=== PATIENT | female | born 1945 ===

== ENCOUNTER 2019-11-03 11:54 | Emergency (ER) | payer OTHER ==
[2019-11-03] MEDS ORDERED: Sodium Chloride 0.9% 10 ML Syringe FLUSH PRN (12:06)
[2019-11-03] MEDS ORDERED: Sodium Chloride 0.9% 1,000 ML IV ONE (12:16)
--- NOTE | 2019-11-03 12:25 | EDM.PDOC ---
ED HPI GENERAL MEDICAL PROBLEM - General Chief Complaint: General Stated Complaint: DEHYDRATION Time Seen by Provider: 11/03/19 12:06 Source of Information: Reports: Patient History Limitations: Reports: No Limitations - History of Present Illness INITIAL COMMENTS - FREE TEXT/NARRATIVE: Patient comes to ER requesting IV hydration and says she is dehydrated. Reports she is eating/drinking and urinating well, but feels fatigue. Visiting [place]. Is from [place]. Reports history of renal cancer and says her oncologist told her that the medicine she is taking will cause periodic dehydration and told her that she might need IV fluids "every 3-4 months". Patient reports that she has needed IV fluids 3-4 times a year for this, for the past 4 years. Says every time she gets the fluid the fatigue goes away and she feels well. She denies any other changes. No recent illnesses. No fevers/chills No HEENT changes/runny nose/ST/vision changes/vertigo No Resp changes/cough/wheeze/SOB. Has history of "lung problem" for which she has a ProAir inhaler. Denies being diagnosed with COPD. No chest pain/palpitations Denies nausea/emesis/bowel changes. No UTI complaints/frequency/burning. No new focal neuro changes. - Related Data Allergies Allergy/AdvReac Type Severity Reaction Status Date / Time aspirin Allergy Shaking Verified 11/03/19 11:59 diphenhydramine Allergy Shaking Verified 11/03/19 11:59 [From Benadryl] Penicillins Allergy Shaking Verified 11/03/19 11:59 Home Meds: Home Meds Albuterol Sulfate [Proair Hfa] 8.5 gm IH Q4HR PRN 11/03/19 [History] Calcium Carbonate/Vitamin D3 [Calcium 600-D3 20Mcg(800 Unit)] 1 each PO BID [History] Cholecalciferol (Vitamin D3) [Vitamin D3] 25 mcg PO DAILY@1800 11/03/19 [History ] Cranberry Extract/Vit C [Azo Cranberry Softgel] 1 each PO DAILY 11/03/19 [ History] Cyanocobalamin (Vitamin B-12) [Vitamin B-12] 5,000 mcg PO DAILY@1800 11/03/19 [ History] Everolimus [Afinitor] 7.5 mg PO DAILY@2100 11/03/19 [History] Ferrous Sulfate [Iron] 325 mg PO DAILY@1800 11/03/19 [History] Hydrocodone/Acetaminophen [Hydrocodon-Acetaminophen 5-325] 1 each PO Q6HR PRN [History] Lenvatinib Mesylate [Lenvima] 4 mg PO DAILY@2100 11/03/19 [History] Levothyroxine [Synthroid] 88 mcg PO ACBREAKFAST 11/03/19 [History] Pantoprazole [ProTONIX] 40 mg PO DAILY 11/03/19 [History] Sodium Bicarbonate 650 mg PO BID 11/03/19 [History] Vitamin E 400 unit PO DAILY@1800 11/03/19 [History] atorvaSTATin [Lipitor] 40 mg PO BEDTIME 11/03/19 [History] Past Medical History Cardiovascular History: Reports: High Cholesterol Respiratory History: Reports: Asthma Gastrointestinal History: Reports: Chronic Constipation, GERD Endocrine/Metabolic History: Reports: Hypothyroidism Oncologic (Cancer) History: Reports: Renal Social & Family History - Tobacco Use Smoking Status *Q: Never Smoker - Caffeine Use Caffeine Use: Reports: Tea - Alcohol Use Alcohol Use History: No - Recreational Drug Use Recreational Drug Use: No Drug Use in Last 12 Months: No ED ROS GENERAL - Review of Systems Review Of Systems: Comprehensive ROS is negative, except as noted in HPI. ED EXAM, GENERAL - Physical Exam Exam: See Below Exam Limited By: No Limitations General Appearance: Alert, WD/WN, No Apparent Distress Ears: Hearing Grossly Normal Nose: No: Nasal Deformity, Nasal Swelling, Nasal Drainage Throat/Mouth: Normal Lips, No Airway Compromise, Perioral Cyanosis Head: Atraumatic, Normocephalic Neck: Normal Inspection, Supple, Non-Tender, Full Range of Motion Respiratory/Chest: No Respiratory Distress, Lungs Clear, Normal Breath Sounds, No Accessory Muscle Use, Chest Non-Tender Cardiovascular: Regular Rate, Rhythm, No Murmur Peripheral Pulses: 1+: Radial (L), Radial (R) GI/Abdominal: Soft, Non-Tender, No Distention (Female) Exam: Deferred Rectal (Female) Exam: Deferred Back Exam: No: Muscle Spasm, Paraspinal Tenderness, Vertebral Tenderness Extremities: Normal Capillary Refill, Pedal Edema (mild, bilateral) Neurological: Alert, Oriented, Normal Cognition, Normal Gait, No Motor/Sensory Deficits Psychiatric: Normal Affect, Normal Mood Skin Exam: Warm, Dry, Intact, Normal Color Course - Vital Signs Last Recorded V/S: Last Vital Signs Temp 36.6 C 11/03/19 11:55 Pulse 93 11/03/19 11:55 Resp 16 11/03/19 11:55 BP 131/66 11/03/19 11:55 Pulse Ox 97 11/03/19 11:55 - Orders/Labs/Meds Orders: Active Orders 24 hr Category Date Time Status Saline Lock Insert [OM.PC] Routine Oth 11/03/19 12:06 Ordered Meds: Medications Discontinued Medications Generic Name Dose Route Start Last Admin Trade Name Freq PRN Reason Stop Dose Admin Sodium Chloride 1,000 mls @ 500 mls/hr 11/03/19 12:16 11/03/19 13:18 Normal Saline IV 11/03/19 14:15 500 mls/hr .BOLUS ONE Administration Sodium Chloride 500 mls @ 500 mls/hr 11/03/19 15:30 Normal Saline IV .BOLUS ROGER Sodium Chloride 10 ml 11/03/19 12:06 Saline Flush FLUSH ASDIRECTED PRN Keep Vein Open - Re-Assessments/Exams Free Text/Narrative Re-Assessment/Exam: No noted signs of dehydration on physical exam. Given patient's history will give benefit of doubt. Unable to contact her usual clinic in [place] as it is Monday. Patient reports that she usually receives 2L NS over 4 hours. Patient denies history of heart disease/CHF/fluid overload. Basic labs requested. 11/03/19 13:41 unable to obtain blood for labs despite multiple attempts. Labs cancelled. Able to place IV site for fluid administration however. 11/03/19 21:46 Patient had unremarkable stay while receiving IV fluids. To follow up as needed /see how she feels tomorrow to gauge response to the IV fluids. Departure - Departure Time of Disposition: 17:00 Disposition: Home, Self-Care 01 Condition: Good Clinical Impression: Dehydration, Hx of renal cell cancer - Discharge Information *PRESCRIPTION DRUG MONITORING PROGRAM REVIEWED*: Not Applicable *COPY OF PRESCRIPTION DRUG MONITORING REPORT IN PATIENT MATEO: Not Applicable Referrals: PCP,None [Primary Care Provider] - Forms: ED Department Discharge Additional Instructions: Continue with your current plan of treatment and follow up as needed if you have any further problems/concerns Sepsis Event Note - Evaluation Sepsis Screening Result: No Definite Risk - Focused Exam Vital Signs: Vital Signs Temp Pulse Resp BP Pulse Ox 11/03/19 11:55 36.6 C 93 16 131/66 97 Date Exam was Performed: 11/03/19 Time Exam was Performed: 21:46 - My Orders Last 24 Hours: My Active Orders 11/03/19 12:06 Saline Lock Insert [OM.PC] Routine - Assessment/Plan Last 24 Hours: My Active Orders 11/03/19 12:06 Saline Lock Insert [OM.PC] Routine
[2019-11-03] MEDS ORDERED: Sodium Chloride 0.9% 500 ML IV SCH (15:30)
== END 2019-11-03 16:25 | disposition home or self-care (01) ==
LOC: LL.ED 11:54
DX: E86.0 Dehydration (principal); Z85.528 Personal history of other malignant neoplasm of kidney; E78.00 Pure hypercholesterolemia, unspecified; J45.909 Unspecified asthma, uncomplicated; K21.9 Gastro-esophageal reflux disease without esophagitis; E03.9 Hypothyroidism, unspecified; Z88.0 Allergy status to penicillin; Z79.899 Other long term (current) drug therapy; Z88.8 Allergy status to other drugs, medicaments and biological substances
CPT/HCPCS: 96360; 96361; 99283; J7030

== ENCOUNTER 2019-11-19 09:23 | Inpatient (IN) | payer MEDICAID, MEDICARE ==
[2019-11-19] MEDS ORDERED: Acetaminophen 325 MG Tab PO PRN (16:00)
[2019-11-19] MEDS ORDERED: Bisacodyl 10 MG Supp RECTAL PRN (16:19)
[2019-11-19] MEDS ORDERED: Albuterol 8 GM Inhaler INH PRN (16:19)
--- NOTE | 2019-11-19 16:47 | PCM.HP.2 ---
H&P History of Present Illness - General Date of Service: 11/19/19 Admit Problem/Dx: Admission Diagnosis/Problem Admission Diagnosis/Problem Laminectomy Source of Information: Patient, Old Records, RN Notes Reviewed History Limitations: Reports: No Limitations - History of Present Illness Initial Comments - Free Text/Narative: Pt to be admitted to swing bed after undergoing T3 laminectomy Pt with hx/o metastatic renal CA Onset of Symptoms: Reports: Gradual Location: Reports: Back Context: Reports: Other (Post OP) - Related Data Allergies/Adverse Reactions: Allergies Allergy/AdvReac Type Severity Reaction Status Date / Time aspirin Allergy Shaking Verified 11/03/19 11:59 diphenhydramine Allergy Shaking Verified 11/03/19 11:59 [From Benadryl] Penicillins Allergy Shaking Verified 11/03/19 11:59 Home Medications: Home Meds Albuterol Sulfate [Proair Hfa] 8.5 gm IH Q4HR PRN 11/03/19 [History] Calcium Carbonate/Vitamin D3 [Calcium 600-D3 20Mcg(800 Unit)] 1 each PO BEDTIME 11/03/19 [History] Cholecalciferol (Vitamin D3) [Vitamin D3] 25 mcg PO BEDTIME 11/03/19 [History] Cranberry Extract/Vit C [Azo Cranberry Softgel] 1 each PO DAILY 11/03/19 [ History] Cyanocobalamin (Vitamin B-12) [Vitamin B-12] 5,000 mcg PO DAILY 11/03/19 [ History] Ferrous Sulfate [Iron] 325 mg PO DAILY@1800 11/03/19 [History] Lenvatinib Mesylate [Lenvima] 4 mg PO DAILY@2100 11/03/19 [History] Levothyroxine [Synthroid] 88 mcg PO ACBREAKFAST 11/03/19 [History] Pantoprazole [ProTONIX] 40 mg PO DAILY 11/03/19 [History] Sodium Bicarbonate 650 mg PO BID 11/03/19 [History] Vitamin E 400 unit PO DAILY@1800 11/03/19 [History] atorvaSTATin [Lipitor] 40 mg PO BEDTIME 11/03/19 [History] Acetaminophen 650 mg PO Q4HR PRN 11/19/19 [History] Bisacodyl [Dulcolax] 10 mg RC DAILY PRN 11/19/19 [History] Everolimus [Afinitor] 7.5 mg PO DAILY@2100 11/19/19 [History] Lactulose 30 ml PO DAILY 11/19/19 [History] Sennosides/Docusate Sodium [Senna-Docusate Sodium Tablet] 1 each PO BID [History] amLODIPine Besylate [Norvasc] 10 mg PO DAILY 11/19/19 [History] oxyCODONE 5 mg PO Q4HR PRN 11/19/19 [History] polyethylene glycoL 3350 [MiraLAX] 17 gm PO DAILY 11/19/19 [History] Past Medical History Cardiovascular History: Reports: High Cholesterol Respiratory History: Reports: Asthma Gastrointestinal History: Reports: Chronic Constipation, GERD Endocrine/Metabolic History: Reports: Hypothyroidism Oncologic (Cancer) History: Reports: Renal - Infectious Disease History Infectious Disease History: Reports: Measles, Mumps Social & Family History - Caffeine Use Caffeine Use: Reports: Tea H&P Review of Systems - Review of Systems: Review Of Systems: See Below General: Reports: No Symptoms Pulmonary: Reports: No Symptoms Cardiovascular: Reports: No Symptoms Gastrointestinal: Reports: No Symptoms Musculoskeletal: Reports: Neck Pain, Back Pain Skin: Reports: Other (LLE and Coccyx wounds) Exam - Exam Exam: See Below - Exam General: Alert, Oriented HEENT: Mucosa Moist & [place] Neck: Supple Lungs: Clear to Auscultation Cardiovascular: Regular Rate GI/Abdominal Exam: Soft, Non-Tender Back Exam: Other (Incision dressing intact) Extremities: No Pedal Edema Skin: Other (Wound on coccyx and LLE Dressings intact) Neuro Extensive - Mental Status: Alert, Oriented x3, Normal Mood/Affect, Normal Cognition - Problem List (1) History of laminectomy SNOMED Code(s): 296669951, 391544445 ICD Code: Z98.890 - OTHER SPECIFIED POSTPROCEDURAL STATES Status: Acute Current Visit: Yes (2) Hx of renal cell cancer SNOMED Code(s): 849396207 ICD Code: Z85.528 - PERSONAL HISTORY OF OTHER MALIGNANT NEOPLASM OF KIDNEY Status: Acute Current Visit: No Problem List Initiated/Reviewed/Updated: Yes Orders Last 24hrs: Active Orders 24 hr Category Date Time Status Patient Status [ADT] Routine ADT 11/19/19 16:23 Active Ambulate [RC] ASDIRECTED Care 11/19/19 16:23 Ordered Ambulate [RC] ASDIRECTED Care 11/19/19 16:23 Ordered Antiembolic Devices [RC] PER UNIT ROUTINE Care 11/19/19 16:27 Ordered Bladder Scan [RC] ASDIRECTED Care 11/19/19 16:32 Ordered Brace [Immobilizer] [RC] ASDIRECTED Care 11/19/19 16:30 Ordered Communication Order [RC] ROUTINE Care 11/19/19 16:35 Ordered Communication Order [RC] ROUTINE Care 11/19/19 16:38 Ordered Cooling Warming Measures [RC] ASDIRECTED Care 11/19/19 16:40 Ordered Height and Weight [RC] Tu@0600 Care 11/19/19 16:26 Ordered Insert Hernandez Catheter [Insert Urinary Catheter] [OM.PC] Care 11/19/19 16:45 Ordered Q24H Oxygen Therapy [RC] PRN Care 11/19/19 16:23 Ordered Supplement (Dietary) [Dietary Supplements] [RC] Care 11/19/19 16:39 Ordered BIDMEALS Turn and Reposition [RC] Q2HR Care 11/19/19 16:41 Ordered Up With Assistance [RC] ASDIRECTED Care 11/19/19 16:23 Ordered Up to Chair [RC] ASDIRECTED Care 11/19/19 16:23 Ordered Urinary Catheter Assessment [RC] ASDIRECTED Care 11/19/19 16:35 Ordered VTE/DVT Education [RC] PER UNIT ROUTINE Care 11/19/19 16:23 Ordered Vital Signs [RC] DAILY@0800 Care 11/19/19 16:23 Ordered Wound Care [RC] DAILY Care 11/19/19 16:28 Ordered Consult to Case Management/B[employer] [CONS] Cons 11/19/19 16:23 Ordered Routine OT Evaluation and Treatment [CONS] Routine Cons 11/19/19 16:23 Ordered PT Evaluation and Treatment [CONS] Routine Cons 11/19/19 16:23 Ordered Regular Diet [DIET] Diet 11/19/19 Lunch Ordered Cervical Spine 2V or 3V [CR] Routine Exams 12/26/19 05:11 Ordered Acetaminophen [Tylenol] Med 11/19/19 16:19 Ordered 650 mg PO Q4HR PRN Albuterol [Ventolin HFA] Med 11/19/19 16:19 Ordered 8.5 gm INH Q4HR PRN Calcium Carbonate/Vitamin D3 [Calcium 600-D3 20Mcg(800 Med 11/19/19 20:00 Ordered Unit)] 1 each PO BEDTIME Cholecalciferol (Vitamin D3) [Vitamin D3] Med 11/19/19 20:00 Ordered 25 mcg PO BEDTIME Cranberry Extract/Vit C [Azo Cranberry Softgel] Med 11/20/19 08:00 Ordered 1 each PO DAILY Cyanocobalamin (Vitamin B-12) [Vitamin B-12] Med 11/20/19 08:00 Ordered 5,000 mcg PO DAILY Docusate Sodium/Sennosides [Senna Plus] Med 11/19/19 18:00 Ordered 1 each PO BID Everolimus [Afinitor] Med 11/19/19 21:00 Ordered 7.5 mg PO DAILY@2100 Ferrous Sulfate Med 11/19/19 18:00 Ordered 325 mg PO DAILY@1800 Lactulose [Lactulose] Med 11/20/19 08:00 Ordered 30 ml PO DAILY Lenvatinib Mesylate [Lenvima] Med 11/19/19 21:00 Ordered 4 mg PO DAILY@2100 Levothyroxine [Synthroid] Med 11/20/19 07:30 Ordered 88 mcg PO ACBREAKFAST Pantoprazole [ProTONIX] Med 11/20/19 08:00 Ordered 40 mg PO DAILY Sodium Bicarbonate Med 11/19/19 18:00 Ordered 650 mg PO BID Vitamin E [Vitamin E] Med 11/19/19 18:00 Ordered 400 unit PO DAILY@1800 amLODIPine Besylate [Norvasc] Med 11/20/19 08:00 Ordered 10 mg PO DAILY atorvaSTATin [Lipitor] Med 11/19/19 20:00 Ordered 40 mg PO BEDTIME bisacodyL [Dulcolax] Med 11/19/19 16:19 Ordered 10 mg RECTAL DAILY PRN oxyCODONE Med 11/19/19 16:19 Ordered 5 mg PO Q4HR PRN polyethylene glycoL 3350 [MiraLAX] Med 11/20/19 08:00 Ordered 17 gm PO DAILY Antiembolic Hose [OM.PC] Routine Oth 11/19/19 16:23 Ordered Heat Therapy [OM.PC] Routine Oth 11/19/19 16:40 Ordered Ice Pack [Ice Therapy] [OM.PC] Routine Oth 11/19/19 16:41 Ordered Lifting Restrictions [OM.PC] Routine Oth 11/19/19 16:32 Ordered Resuscitation Status Routine Resus Stat 11/19/19 16:23 Ordered Medication Orders Acetaminophen (Tylenol) 650 mg PO Q4HR PRN PRN Reason: mild pain or headache Albuterol (Ventolin Hfa) 0 gm INH Q4HR PRN PRN Reason: sob Amlodipine Besylate (Norvasc) 10 mg PO DAILY ROGER Atorvastatin Calcium (Lipitor) 40 mg PO BEDTIME ROGER Bisacodyl (Dulcolax) 10 mg RECTAL DAILY PRN PRN Reason: Constipation Calcium Carbonate (Caltrate 600+D 1500 Mg-400 Units) 1 tab PO BEDTIME ROGER Cholecalciferol (Vitamin D3) 25 mcg PO BEDTIME [facility]OG[facility] Cranberry (Cranberry) 500 mg PO DAILY [facility]OGER Cyanocobalamin (Vitamin B12) 5,000 mcg PO DAILY [facility]OG[facility] Ferrous Sulfate (Ferrous Sulfate) 325 mg PO DAILY@1800 [facility] Lactulose (Cephulac) 20 gm PO DAILY [facility] Levothyroxine Sodium (Synthroid) 88 mcg PO ACBREAKFAST [facility] Everolimus [Afinitor (] 7.5 Mg Tablets) 7.5 mg PO DAILY@2100 [facility] Lenvatinib Mesylate [Lenvima] 4 Mg Capsules 4 mg PO DAILY@2100 [facility] Oxycodone HCl (Oxycodone) 5 mg PO Q4HR PRN PRN Reason: moderate pain Pantoprazole Sodium (Protonix) 40 mg PO DAILY [facility] Polyethylene Glycol (Miralax) 17 gm PO DAILY [facility] Senna/Docusate Sodium (Senna Plus) 1 tab PO BID [facility] Sodium Bicarbonate (Sodium Bicarbonate) 650 mg PO BID [facility] Vitamin E (Vitamin E) 400 units PO DAILY@1800 [facility] Assessment/Plan Comment:: Imp: S/P T3 laminectomy Hx/o metastatic renal cell CA Plan: Admit to swing bed
[2019-11-19] MEDS: Sodium Bicarbonate 650 MG Tab PO SCH (17:49)
[2019-11-19] MEDS: Vitamin E (dl-alpha-tocopherol acetate) 400 Unit Cap PO SCH (17:50)
[2019-11-19] MEDS: Cholecalciferol (Vitamin D3) 25 MCG Tab PO SCH (20:13)
[2019-11-19] MEDS: Ferrous Sulfate 325 MG Tab PO SCH (20:13)
[2019-11-19] MEDS: atorvaSTATin 40 MG Tab PO SCH (20:14)
[2019-11-19] MEDS: Calcium Carbonate/Vitamin D3 1500 MG-400 Units Tab PO SCH (20:14)
[2019-11-19] MEDS: EVEROLIMUS 7.5 MG PO SCH (20:14)
[2019-11-19] MEDS: LENVATINIB MESYLATE 4 MG PO SCH (20:16)
[2019-11-20] MEDS: Polyethylene Glycol 3350 Powder 17 GM Packet PO SCH (08:53)
[2019-11-20] MEDS: Lactulose Soln 10 GM/15 ML 30 ML UD Cup PO SCH (08:53)
[2019-11-20] MEDS: Cyanocobalamin (Vitamin B12) 1,000 MCG Tab PO SCH (08:53)
[2019-11-20] MEDS: Levothyroxine 88 MCG Tab PO SCH (08:54)
[2019-11-20] MEDS: Cranberry 500 MG Cap PO SCH (08:55)
[2019-11-20] MEDS: Sodium Bicarbonate 650 MG Tab PO SCH ×2 (08:55→17:37)
[2019-11-20] MEDS: Pantoprazole 40 MG Tab.CR PO SCH (08:55)
[2019-11-20] MEDS: amLODIPine 5 MG Tab PO SCH (08:57)
[2019-11-20] MEDS: Vitamin E (dl-alpha-tocopherol acetate) 400 Unit Cap PO SCH (17:37)
[2019-11-20] MEDS: Calcium Carbonate/Vitamin D3 1500 MG-400 Units Tab PO SCH (21:10)
[2019-11-20] MEDS: atorvaSTATin 40 MG Tab PO SCH (21:11)
[2019-11-20] MEDS: Cholecalciferol (Vitamin D3) 25 MCG Tab PO SCH (21:11)
[2019-11-20] MEDS: EVEROLIMUS 7.5 MG PO SCH (21:11)
[2019-11-20] MEDS: LENVATINIB MESYLATE 4 MG PO SCH (21:12)
[2019-11-21] MEDS: Levothyroxine 88 MCG Tab PO SCH (07:58)
[2019-11-21] MEDS: Cranberry 500 MG Cap PO SCH (07:59)
[2019-11-21] MEDS: amLODIPine 5 MG Tab PO SCH (07:59)
[2019-11-21] MEDS: Cyanocobalamin (Vitamin B12) 1,000 MCG Tab PO SCH (07:59)
[2019-11-21] MEDS: Sodium Bicarbonate 650 MG Tab PO SCH ×2 (07:59→17:36)
[2019-11-21] MEDS: Polyethylene Glycol 3350 Powder 17 GM Packet PO SCH (07:59)
[2019-11-21] MEDS: Pantoprazole 40 MG Tab.CR PO SCH (07:59)
[2019-11-21] MEDS: Lactulose Soln 10 GM/15 ML 30 ML UD Cup PO SCH (08:00)
[2019-11-21] MEDS: Vitamin E (dl-alpha-tocopherol acetate) 400 Unit Cap PO SCH (17:36)
[2019-11-21] MEDS: Ferrous Sulfate 325 MG Tab PO SCH (17:36)
[2019-11-21] MEDS: atorvaSTATin 40 MG Tab PO SCH (20:50)
[2019-11-21] MEDS: Calcium Carbonate/Vitamin D3 1500 MG-400 Units Tab PO SCH (20:50)
[2019-11-21] MEDS: Cholecalciferol (Vitamin D3) 25 MCG Tab PO SCH (20:50)
[2019-11-21] MEDS: EVEROLIMUS 7.5 MG PO SCH (20:51)
[2019-11-21] MEDS: LENVATINIB MESYLATE 4 MG PO SCH (20:51)
[2019-11-22] MEDS: oxyCODONE 5 MG Tab PO PRN (00:20)
[2019-11-22 07:37] LABS: PTT,PARTIAL THROMBOPLSTIN TIME 23.4 SEC (24.5-32.8)
[2019-11-22] MEDS: Cranberry 500 MG Cap PO SCH (08:00)
[2019-11-22] MEDS: Sodium Bicarbonate 650 MG Tab PO SCH ×2 (08:01→17:33)
[2019-11-22] MEDS: Cyanocobalamin (Vitamin B12) 1,000 MCG Tab PO SCH (08:01)
[2019-11-22] MEDS: amLODIPine 5 MG Tab PO SCH (08:01)
[2019-11-22] MEDS: Levothyroxine 88 MCG Tab PO SCH (08:01)
[2019-11-22] MEDS: Pantoprazole 40 MG Tab.CR PO SCH (08:01)
[2019-11-22] MEDS: Polyethylene Glycol 3350 Powder 17 GM Packet PO SCH (08:02)
--- NOTE | 2019-11-22 15:19 | PCM.PN ---
- General Info Date of Service: 11/22/19 Admission Dx/Problem (Free Text): Admission Diagnosis/Problem 1. Postoperative weakness 2. Osteoarthritis with status post T3 laminectomy 3. Metastatic renal cancer Functional Status: Reports: Pain Controlled, Tolerating Diet, Ambulating (With assist), Urinating, Incentive Spirometry. Denies: New Symptoms Pain Score: 1 - Review of Systems General: Reports: Weakness (Improving slowly). Denies: Fever, Fatigue, Malaise , Chills, Night Sweats, Appetite HEENT: Reports: Glasses. Denies: Dysphasia, Ear Pain, Eye Pain, Headaches, Post Nasal Drip, Sinus Congestion, Sore Throat, Rhinitis, Visual Changes Pulmonary: Reports: No Symptoms. Denies: Shortness of Breath, Pleuritic Chest Pain, Cough, Sputum, Hemoptysis, Wheezing Cardiovascular: Reports: No Symptoms. Denies: Chest Pain, Palpitations, Orthopnea, Edema, Lightheadedness Gastrointestinal: Reports: No Symptoms, Other (Normal bowel movement today.). Denies: Abdominal Pain, Constipation, Decreased Appetite, Diarrhea, Difficulty Swallowing, Flatus, Hematochezia, Melena, Nausea, Vomiting Genitourinary: Reports: No Symptoms. Denies: Dysuria, Frequency, Burning, Urgency, Incontinence, Hematuria, Retention, Flank Pain Musculoskeletal: Reports: Back Pain (Upper thoracic improving). Denies: Neck Pain, Shoulder Pain, Arm Pain, Leg Pain Skin: Reports: No Symptoms. Denies: Diaphoresis, Bruising Neurological: Reports: Pre-Existing Deficit, Weakness (Improving slowly). Denies: Confusion, Dizziness, Paresthesia Psychiatric: Reports: No Symptoms. Denies: Confusion, Depression, Anxiety, Agitation, Cravings, Hallucinations - Patient Data Vitals - Most Recent: Last Vital Signs Temp 36.7 C 11/22/19 08:00 Pulse 78 11/22/19 08:00 Resp 17 11/22/19 08:00 BP 151/82 H 11/22/19 08:01 Pulse Ox 96 11/22/19 08:00 Vital Signs - 24 hr 11/22/19 11/22/19 08:00 08:01 Temperature [ 36.7 C Oral] Pulse, 78 Peripheral [ Right Pulse Oximetry] Respiratory 17 Rate Blood Pressure 151/82 H Blood Pressure 151/82 H [Left Upper Arm ] O2 Sat by Pulse 96 Oximetry Weight - Most Recent: 70.307 kg I&O - Last 24 Hours: Intake & Output 11/22/19 11/22/19 11/22/19 06:59 14:59 22:59 Intake Total 100 780 Output Total 500 Balance -400 780 Imaging Impressions - Last 24 Hours: None Lab Results Last 24 Hours: Laboratory Results - last 24 hr 11/22/19 11/22/19 11/22/19 Range/Units 06:51 06:51 06:51 WBC 10.6 H (4.0-10.2) K/uL RBC 3.62 L (3.77-5.09) M/uL Hgb 9.1 L (11.7-15.5) g/dL Hct 30.7 L (34.0-46.0) % MCV 84.8 (84.0-98.0) fL MCH 25.1 L (28.2-33.3) pg MCHC 29.6 L (31.7-36.0) g/dL RDW 19.5 H (11.2-14.1) % Plt Count 104 L (150-350) K/uL Neut % (Auto) 91.7 H (45.0-80.0) % Lymph % (Auto) 3.5 L (10.0-50.0) % [place] % (Auto) 3.9 (2.0-14.0) % Eos % (Auto) 0.8 (0.0-5.0) % Baso % (Auto) 0.1 (0.0-2.0) % Neut # (Auto) 9.68 H (1.40-7.00) K/uL Lymph # (Auto) 0.37 L (0.50-3.50) K/uL [place] # (Auto) 0.41 (0.00-1.00) K/uL Eos # (Auto) 0.08 (0.00-0.50) K/uL Baso # (Auto) 0.01 (0.00-0.20) K/uL PT 9.8 (9.5-12.0) SEC INR 1.0 APTT 23.4 L (24.5-32.8) SEC Sodium 142 (136-145) mmol/L Potassium 3.3 L (3.5-5.1) mmol/L Chloride 109 H (98-107) mmol/L Carbon Dioxide 24.2 (21.0-32.0) mmol/L BUN 30 H (7-18) mg/dL Creatinine 1.23 H (0.51-1.17) mg/dL Est Cr Clr Drug Dosing 30.77 mL/min Estimated GFR (MDRD) 42 mL/min Glucose 101 (74-106) mg/dL Uric Acid 5.4 (2.6-7.2) mg/dL Calcium 8.1 L (8.5-10.1) mg/dL Magnesium 2.0 (1.8-2.4) mg/dL Total Bilirubin 0.4 (0.2-1.0) mg/dL AST 25 (15-37) U/L ALT 22 (12-78) U/L Alkaline Phosphatase 100 (46-116) IU/L Total Protein 5.5 L (6.4-8.2) g/dL Albumin 2.1 L (3.4-5.0) g/dL Fito Results Last 24 Hours: None Med Orders - Current: Current Medications Acetaminophen (Tylenol) 650 mg PO Q4HR PRN PRN Reason: mild pain or headache Albuterol (Ventolin Hfa) 0 gm INH Q4HR PRN PRN Reason: sob Amlodipine Besylate (Norvasc) 10 mg PO DAILY [facility] Last Admin: 11/22/19 08:01 Dose: 10 mg Atorvastatin Calcium (Lipitor) 40 mg PO BEDTIME [facility] Last Admin: 11/21/19 20:50 Dose: 40 mg Bisacodyl (Dulcolax) 10 mg RECTAL DAILY PRN PRN Reason: Constipation Calcium Carbonate (Caltrate 600+D 1500 Mg-400 Units) 1 tab PO BEDTIME [facility] Last Admin: 11/21/19 20:50 Dose: 1 tab Cholecalciferol (Vitamin D3) 25 mcg PO BEDTIME [facility] Last Admin: 11/21/19 20:50 Dose: 25 mcg Cranberry (Cranberry) 500 mg PO DAILY [facility] Last Admin: 11/22/19 08:00 Dose: 500 mg Cyanocobalamin (Vitamin B12) 5,000 mcg PO DAILY [facility] Last Admin: 11/22/19 08:01 Dose: 5,000 mcg Ferrous Sulfate (Ferrous Sulfate) 325 mg PO Q48H [facility] Last Admin: 03/05/20 17:36 Dose: 325 mg Levothyroxine Sodium (Synthroid) 88 mcg PO ACBREAKFAST [facility] Last Admin: 11/22/19 08:01 Dose: 88 mcg Everolimus [Afinitor (] 7.5 Mg Tablets) 7.5 mg PO DAILY@2100 [facility] Last Admin: 11/21/19 20:51 Dose: 7.5 mg Lenvatinib Mesylate [Lenvima] 4 Mg Capsules 4 mg PO DAILY@2100 [facility] Last Admin: 11/21/19 20:51 Dose: 4 mg Oxycodone HCl (Oxycodone) 5 mg PO Q4HR PRN PRN Reason: moderate pain Last Admin: 11/22/19 00:20 Dose: 5 mg Pantoprazole Sodium (Protonix) 40 mg PO DAILY [facility] Last Admin: 11/22/19 08:01 Dose: 40 mg Polyethylene Glycol (Miralax) 17 gm PO DAILY [facility] Last Admin: 11/22/19 08:02 Dose: Not Given Sodium Bicarbonate (Sodium Bicarbonate) 650 mg PO BID [facility] Last Admin: 11/22/19 08:01 Dose: 650 mg Vitamin E (Vitamin E) 400 units PO DAILY@1800 [facility] Last Admin: 11/21/19 17:36 Dose: 400 units Discontinued Medications Lactulose (Cephulac) 20 gm PO DAILY [facility] Last Admin: 11/21/19 08:00 Dose: Not Given Senna/Docusate Sodium (Senna Plus) 1 tab PO BID [facility] Last Admin: 11/21/19 08:00 Dose: Not Given - Exam Quality Assessment: DVT Prophylaxis. No: Supplemental Oxygen, Central Line/PICC , Urine Catheter, Skin Breakdown, Restraints General: Alert, Oriented, Cooperative, No Acute Distress HEENT: Pupils Equal, Pupils Reactive, EOMI, Mucous Membr. Moist/[place], Other ( Patient wearing glasses) Neck: Supple. No: Trachea Midline, No JVD, No Thyromegaly, Lymphadenopathy Lungs: Clear to Auscultation, Normal Respiratory Effort. No: Rub Cardiovascular: Regular Rate, Regular Rhythm, No Murmurs. No: Gallops, Rubs GI/Abdominal Exam: Normal Bowel Sounds, Soft, Non-Tender, No Organomegaly, No Distention, No Abnormal Bruit, No Mass. No: Guarding (Female) Exam: Deferred Back Exam: Decreased Range of Motion (Mild), Other (Mild tenderness, erythema, equivocal local warming over operative site in the midline of the superior thorax. Felice in place with no evidence of drainage, etc.). No: CVA Tenderness (L), CVA Tenderness (R), Muscle Spasm, Paraspinal Tenderness, Vertebral Tenderness Extremities: Normal Inspection, Normal Range of Motion, Non-Tender, No Pedal Edema, Normal Capillary Refill. No: Arnol's Sign Peripheral Pulses: 2+: Radial (L), Radial (R), Dorsalis Pedis (L), Dorsalis Pedis (R) Skin: Other (As above) Wound/Incisions: Healing Well, Dressing Dry and Intact, No Drainage, Erythema ( Mild) Neurological: No New Focal Deficit Psy/Mental Status: Alert, Normal Affect, Normal Mood. No: Agitated, Hallucinations, Withdrawal Symptoms Sepsis Event Note - Evaluation Sepsis Screening Result: No Definite Risk - Focused Exam Vital Signs: Vital Signs Temp Pulse Resp BP BP Pulse Ox 11/22/19 08:01 151/82 H 11/22/19 08:00 36.7 C 78 17 151/82 H 96 Date Exam was Performed: 11/22/19 Time Exam was Performed: 16:28 - Problem List & Annotations (1) Osteoarthritis SNOMED Code(s): 922928186 Code(s): M19.90 - UNSPECIFIED OSTEOARTHRITIS, UNSPECIFIED SITE Status: Acute Priority: High Current Visit: Yes Qualifiers: Osteoarthritis location: multiple joints Osteoarthritis type: primary Qualified Code(s): M15.0 - Primary generalized (osteo)arthritis Annotation/Comment:: Stable by history. Note recent thoracic T3 laminectomy. Continue physical therapy, occupational therapy, etc. Borderline leukocytosis with no fever or local signs of infection. Repeat blood work prior to discharge on 11/25. (2) Hx of renal cell cancer SNOMED Code(s): 575072820 Code(s): Z85.528 - PERSONAL HISTORY OF OTHER MALIGNANT NEOPLASM OF KIDNEY Status: Chronic Priority: High Current Visit: Yes Annotation/Comment:: She will be discharged on 11/26/19 for resumption of chemotherapy in [facility] [place]. (3) Hyperlipidemia SNOMED Code(s): 22053127 Code(s): E78.5 - HYPERLIPIDEMIA, UNSPECIFIED Status: Chronic Priority: Medium Current Visit: Yes Qualifiers: Hyperlipidemia type: unspecified Qualified Code(s): E78.5 - Hyperlipidemia , unspecified Annotation/Comment:: Currently under therapy. Continue to observe closely by her regular providers. (4) COPD (chronic obstructive pulmonary disease) SNOMED Code(s): 32796532 Code(s): J44.9 - CHRONIC OBSTRUCTIVE PULMONARY DISEASE, UNSPECIFIED Status : Chronic Priority: Medium Current Visit: Yes Qualifiers: COPD type: emphysema Emphysema type: panlobular Qualified Code(s): J43.1 - Panlobular emphysema Annotation/Comment:: No recent fever or bronchitic type symptoms. (5) Iron deficiency anemia SNOMED Code(s): 06022843 Code(s): D50.9 - IRON DEFICIENCY ANEMIA, UNSPECIFIED Status: Chronic Priority: Medium Current Visit: Yes Qualifiers: Iron deficiency anemia type: other iron deficiency Qualified Code(s): D50.8 - Other iron deficiency anemias Annotation/Comment:: Continue iron supplementation (6) Peptic reflux disease SNOMED Code(s): 938898031 Code(s): K21.9 - GASTRO-ESOPHAGEAL REFLUX DISEASE WITHOUT ESOPHAGITIS Status: Chronic Priority: Medium Current Visit: Yes Annotation/Comment:: Stable with current medical therapy. (7) Constipation SNOMED Code(s): 03829901 Code(s): K59.00 - CONSTIPATION, UNSPECIFIED Status: Chronic Priority: Medium Current Visit: Yes Qualifiers: Constipation type: chronic idiopathic constipation Qualified Code(s): K59.04 - Chronic idiopathic constipation Annotation/Comment:: Stable with normal bowel movement earlier today. (8) Hypertension SNOMED Code(s): 29672844 Code(s): I10 - ESSENTIAL (PRIMARY) HYPERTENSION Status: Chronic Priority : Medium Current Visit: Yes Qualifiers: Hypertension type: essential hypertension Qualified Code(s): I10 - Essential (primary) hypertension Annotation/Comment:: Stable during her swing bed care. (9) Hypokalemia SNOMED Code(s): 80539578 Code(s): E87.6 - HYPOKALEMIA Status: Acute Priority: Medium Current Visit: Yes Onset Date: 11/22/19 Annotation/Comment:: Add potassium supplementation with repeat blood work on 11/25. (10) Hypocalcemia SNOMED Code(s): 3965587 Code(s): E83.51 - HYPOCALCEMIA Status: Acute Priority: Medium Current Visit: Yes Annotation/Comment:: Increase calcium supplementation with extra strength Tums. (11) Hypoalbuminemia SNOMED Code(s): 514734050 Code(s): E88.09 - OTH DISORDERS OF PLASMA-PROTEIN METABOLISM, NEC Status: Chronic Priority: Medium Current Visit: Yes Annotation/Comment:: Observe for now. Consider high-protein Glucerna supplements as snacks. - Problem List Review Problem List Initiated/Reviewed/Updated: Yes - Assessment Assessment:: As above - Plan Plan:: As above. Extensive precautions were given to the patient, who is in agreement with the treatment plan. Planned length and discharge on 11/25.
[2019-11-22] MEDS: Vitamin E (dl-alpha-tocopherol acetate) 400 Unit Cap PO SCH (17:33)
[2019-11-22] MEDS: Calcium Carbonate 750 MG Tab.Chew PO SCH (19:41)
[2019-11-22] MEDS: Cholecalciferol (Vitamin D3) 25 MCG Tab PO SCH (19:41)
[2019-11-22] MEDS: Calcium Carbonate/Vitamin D3 1500 MG-400 Units Tab PO SCH (19:41)
[2019-11-22] MEDS: atorvaSTATin 40 MG Tab PO SCH (19:41)
[2019-11-22] MEDS: LENVATINIB MESYLATE 4 MG PO SCH (20:57)
[2019-11-22] MEDS: EVEROLIMUS 7.5 MG PO SCH (20:58)
[2019-11-23] MEDS: Potassium Chloride 20 MEQ Tab.ER PO SCH (07:48)
[2019-11-23] MEDS: amLODIPine 5 MG Tab PO SCH (07:48)
[2019-11-23] MEDS: Cyanocobalamin (Vitamin B12) 1,000 MCG Tab PO SCH (07:48)
[2019-11-23] MEDS: Pantoprazole 40 MG Tab.CR PO SCH (07:48)
[2019-11-23] MEDS: Cranberry 500 MG Cap PO SCH (07:48)
[2019-11-23] MEDS: Levothyroxine 88 MCG Tab PO SCH (07:48)
[2019-11-23] MEDS: Sodium Bicarbonate 650 MG Tab PO SCH ×2 (07:48→17:30)
[2019-11-23] MEDS: Polyethylene Glycol 3350 Powder 17 GM Packet PO SCH (08:21)
[2019-11-23] MEDS: Vitamin E (dl-alpha-tocopherol acetate) 400 Unit Cap PO SCH (17:30)
[2019-11-23] MEDS: Ferrous Sulfate 325 MG Tab PO SCH (17:34)
[2019-11-23] MEDS: Calcium Carbonate 750 MG Tab.Chew PO SCH (20:05)
[2019-11-23] MEDS: EVEROLIMUS 7.5 MG PO SCH (20:05)
[2019-11-23] MEDS: Calcium Carbonate/Vitamin D3 1500 MG-400 Units Tab PO SCH (20:05)
[2019-11-23] MEDS: atorvaSTATin 40 MG Tab PO SCH (20:05)
[2019-11-23] MEDS: LENVATINIB MESYLATE 4 MG PO SCH (20:05)
[2019-11-23] MEDS: Cholecalciferol (Vitamin D3) 25 MCG Tab PO SCH (20:05)
[2019-11-23] MEDS: oxyCODONE 5 MG Tab PO PRN (22:28)
[2019-11-24] MEDS: Cyanocobalamin (Vitamin B12) 1,000 MCG Tab PO SCH (07:59)
[2019-11-24] MEDS: Potassium Chloride 20 MEQ Tab.ER PO SCH (07:59)
[2019-11-24] MEDS: Pantoprazole 40 MG Tab.CR PO SCH (07:59)
[2019-11-24] MEDS: Cranberry 500 MG Cap PO SCH (07:59)
[2019-11-24] MEDS: Sodium Bicarbonate 650 MG Tab PO SCH ×2 (07:59→17:15)
[2019-11-24] MEDS: amLODIPine 5 MG Tab PO SCH (07:59)
[2019-11-24] MEDS: Polyethylene Glycol 3350 Powder 17 GM Packet PO SCH (08:00)
[2019-11-24] MEDS: Levothyroxine 88 MCG Tab PO SCH (08:00)
[2019-11-24] MEDS: Vitamin E (dl-alpha-tocopherol acetate) 400 Unit Cap PO SCH (17:15)
[2019-11-24] MEDS: Calcium Carbonate 750 MG Tab.Chew PO SCH (21:07)
[2019-11-24] MEDS: Cholecalciferol (Vitamin D3) 25 MCG Tab PO SCH (21:07)
[2019-11-24] MEDS: Calcium Carbonate/Vitamin D3 1500 MG-400 Units Tab PO SCH (21:07)
[2019-11-24] MEDS: atorvaSTATin 40 MG Tab PO SCH (21:07)
[2019-11-24] MEDS: LENVATINIB MESYLATE 4 MG PO SCH (21:09)
[2019-11-24] MEDS: EVEROLIMUS 7.5 MG PO SCH (21:09)
[2019-11-25] MEDS: Sodium Bicarbonate 650 MG Tab PO SCH ×2 (07:41→17:50)
[2019-11-25] MEDS: Pantoprazole 40 MG Tab.CR PO SCH (07:41)
[2019-11-25] MEDS: Cyanocobalamin (Vitamin B12) 1,000 MCG Tab PO SCH (07:41)
[2019-11-25] MEDS: Levothyroxine 88 MCG Tab PO SCH (07:41)
[2019-11-25] MEDS: Cranberry 500 MG Cap PO SCH (07:41)
[2019-11-25] MEDS: amLODIPine 5 MG Tab PO SCH (07:42)
[2019-11-25] MEDS: Potassium Chloride 20 MEQ Tab.ER PO SCH (07:42)
[2019-11-25] MEDS: Polyethylene Glycol 3350 Powder 17 GM Packet PO SCH (09:31)
[2019-11-25] MEDS: Ferrous Sulfate 325 MG Tab PO SCH (17:49)
[2019-11-25] MEDS: Vitamin E (dl-alpha-tocopherol acetate) 400 Unit Cap PO SCH (17:50)
[2019-11-25] MEDS: Calcium Carbonate 750 MG Tab.Chew PO SCH (20:28)
[2019-11-25] MEDS: Calcium Carbonate/Vitamin D3 1500 MG-400 Units Tab PO SCH (20:29)
[2019-11-25] MEDS: Cholecalciferol (Vitamin D3) 25 MCG Tab PO SCH (20:29)
[2019-11-25] MEDS: atorvaSTATin 40 MG Tab PO SCH (20:30)
[2019-11-25] MEDS: LENVATINIB MESYLATE 4 MG PO SCH (20:31)
[2019-11-25] MEDS: EVEROLIMUS 7.5 MG PO SCH (20:31)
[2019-11-26] MEDS ORDERED: Cyanocobalamin (Vitamin B12) 1,000 MCG Tab ONE (07:49)
[2019-11-26] MEDS: Pantoprazole 40 MG Tab.CR PO SCH (07:57)
[2019-11-26] MEDS: amLODIPine 5 MG Tab PO SCH (07:57)
[2019-11-26] MEDS: Cranberry 500 MG Cap PO SCH (07:57)
[2019-11-26] MEDS: Levothyroxine 88 MCG Tab PO SCH (07:57)
[2019-11-26] MEDS: Cyanocobalamin (Vitamin B12) 1,000 MCG Tab PO SCH (07:57)
[2019-11-26] MEDS: Potassium Chloride 20 MEQ Tab.ER PO SCH (07:57)
[2019-11-26] MEDS: Sodium Bicarbonate 650 MG Tab PO SCH ×2 (07:57→17:42)
[2019-11-26] MEDS: Polyethylene Glycol 3350 Powder 17 GM Packet PO SCH (07:58)
--- NOTE | 2019-11-26 13:10 | PCM.SN ---
- Free Text/Narrative Note: Blood work reviewed today. Note that transfer to [place] delayed at this time secondary to bed and availability. Likely transfer within the next 1-2 days.
[2019-11-26] MEDS: Vitamin E (dl-alpha-tocopherol acetate) 400 Unit Cap PO SCH (17:42)
[2019-11-26] MEDS: Calcium Carbonate/Vitamin D3 1500 MG-400 Units Tab PO SCH (20:38)
[2019-11-26] MEDS: atorvaSTATin 40 MG Tab PO SCH (20:38)
[2019-11-26] MEDS: Calcium Carbonate 750 MG Tab.Chew PO SCH (20:38)
[2019-11-26] MEDS: Cholecalciferol (Vitamin D3) 25 MCG Tab PO SCH (20:38)
[2019-11-26] MEDS: LENVATINIB MESYLATE 4 MG PO SCH (21:51)
[2019-11-26] MEDS: EVEROLIMUS 7.5 MG PO SCH (21:51)
[2019-11-26] MEDS: oxyCODONE 5 MG Tab PO PRN (22:03)
[2019-11-27] MEDS: Levothyroxine 88 MCG Tab PO SCH (08:21)
[2019-11-27] MEDS: Cranberry 500 MG Cap PO SCH (08:21)
[2019-11-27] MEDS: Potassium Chloride 20 MEQ Tab.ER PO SCH (08:21)
[2019-11-27] MEDS: Pantoprazole 40 MG Tab.CR PO SCH (08:22)
[2019-11-27] MEDS: Polyethylene Glycol 3350 Powder 17 GM Packet PO SCH (08:22)
[2019-11-27] MEDS: Sodium Bicarbonate 650 MG Tab PO SCH ×2 (08:22→17:54)
[2019-11-27] MEDS: amLODIPine 5 MG Tab PO SCH (08:22)
[2019-11-27] MEDS: Cyanocobalamin (Vitamin B12) 1,000 MCG Tab PO SCH (08:22)
[2019-11-27] MEDS: Vitamin E (dl-alpha-tocopherol acetate) 400 Unit Cap PO SCH (17:54)
[2019-11-27] MEDS: Ferrous Sulfate 325 MG Tab PO SCH (17:56)
[2019-11-27] MEDS ORDERED: Loperamide 2 MG Tab PO PRN (19:46)
[2019-11-27] MEDS: Cholecalciferol (Vitamin D3) 25 MCG Tab PO SCH (20:17)
[2019-11-27] MEDS: Calcium Carbonate 750 MG Tab.Chew PO SCH (20:17)
[2019-11-27] MEDS: Calcium Carbonate/Vitamin D3 1500 MG-400 Units Tab PO SCH (20:17)
[2019-11-27] MEDS: atorvaSTATin 40 MG Tab PO SCH (20:17)
[2019-11-27] MEDS: EVEROLIMUS 7.5 MG PO SCH (21:54)
[2019-11-27] MEDS: LENVATINIB MESYLATE 4 MG PO SCH (21:54)
[2019-11-27] MEDS: oxyCODONE 5 MG Tab PO PRN (23:41)
[2019-11-28] MEDS ORDERED: Bacitracin/Neomycin/Polymyxin B Oint 0.9 GM U/D Packet TOP ONE (03:53)
[2019-11-28 07:28] VITALS: BP 136/82; PULSE 82
[2019-11-28] MEDS: Cyanocobalamin (Vitamin B12) 1,000 MCG Tab PO SCH (07:45)
[2019-11-28] MEDS: amLODIPine 5 MG Tab PO SCH (07:46)
[2019-11-28] MEDS: Levothyroxine 88 MCG Tab PO SCH (07:46)
[2019-11-28] MEDS: Sodium Bicarbonate 650 MG Tab PO SCH (07:46)
[2019-11-28] MEDS: Cranberry 500 MG Cap PO SCH (07:46)
[2019-11-28] MEDS: Pantoprazole 40 MG Tab.CR PO SCH (07:46)
[2019-11-28] MEDS: Potassium Chloride 20 MEQ Tab.ER PO SCH (07:46)
[2019-11-28] MEDS: Polyethylene Glycol 3350 Powder 17 GM Packet PO SCH (07:47)
--- NOTE | 2019-11-28 11:34 | PCM.DCSUM1 ---
Discharge Summary - Hospital Course HPI Initial Comments: See admission H&P Brief History: See admission H&P Diagnosis: Stroke: No Modified Aurora Scale: No Symptoms at All Modified Aurora Scale Score: 0 - Discharge Data Discharge Date: 11/28/19 Discharge Disposition: Home, Self-Care 01 Condition: Good - Referral to Home Health Primary Care Physician: PCP None - Discharge Diagnosis/Problem(s) (1) Osteoarthritis SNOMED Code(s): 214117480 ICD Code: M19.90 - UNSPECIFIED OSTEOARTHRITIS, UNSPECIFIED SITE Status: Acute Priority: High Current Visit: Yes Problem Details: Despite surgery as below the patient's radiation oncologist, Dr. Calixto at [facility] in [place], was concerned about a possible persistent spinal cord compression and did arrange with their hospitalist, Dr. Parry, to have the patient directly admitted to their hospital at [place]. Note that her carolee from her previous thoracic decompression are scheduled to be removed today. She is also currently using her cervical collar on a when necessary basis with slowly improving leg weakness with PT and OT during her swing bed care. Note recent thoracic T3 laminectomy. Continue physical therapy, occupational therapy, etc. during upcoming hospitalization. Borderline leukocytosis with no fever or local signs of infection. Note PT blood work showed stable anemia and resolution of her previous leukocytosis. UA on morning prior to discharge did show possible UTI from her Hernandez catheter, however urine culture and sensitivity are still pending with initiation of antibiotic therapy per the discretion of the accepting providers. Qualifiers: Osteoarthritis location: multiple joints Osteoarthritis type: primary Qualified Code(s): M15.0 - Primary generalized (osteo)arthritis (2) Hx of renal cell cancer SNOMED Code(s): 185863517 ICD Code: Z85.528 - PERSONAL HISTORY OF OTHER MALIGNANT NEOPLASM OF KIDNEY Status: Chronic Priority: High Current Visit: Yes Problem Details: She initially scheduled to be discharged on 11/26/19 for resumption of chemotherapy in [place], however this was delayed until today secondary to bed availability. (3) Hyperlipidemia SNOMED Code(s): 50184717 ICD Code: E78.5 - HYPERLIPIDEMIA, UNSPECIFIED Status: Chronic Priority: Medium Current Visit: Yes Problem Details: Currently under therapy. Continue to observe closely by her regular providers. Qualifiers: Hyperlipidemia type: unspecified Qualified Code(s): E78.5 - Hyperlipidemia , unspecified (4) COPD (chronic obstructive pulmonary disease) SNOMED Code(s): 06939347 ICD Code: J44.9 - CHRONIC OBSTRUCTIVE PULMONARY DISEASE, UNSPECIFIED Status : Chronic Priority: Medium Current Visit: Yes Problem Details: No recent fever or bronchitic type symptoms. Qualifiers: COPD type: emphysema Emphysema type: panlobular Qualified Code(s): J43.1 - Panlobular emphysema (5) Iron deficiency anemia SNOMED Code(s): 13737135 ICD Code: D50.9 - IRON DEFICIENCY ANEMIA, UNSPECIFIED Status: Chronic Priority: Medium Current Visit: Yes Problem Details: Continue iron supplementation Qualifiers: Iron deficiency anemia type: other iron deficiency Qualified Code(s): D50.8 - Other iron deficiency anemias (6) Peptic reflux disease SNOMED Code(s): 943532128 ICD Code: K21.9 - GASTRO-ESOPHAGEAL REFLUX DISEASE WITHOUT ESOPHAGITIS Status: Chronic Priority: Medium Current Visit: Yes Problem Details: Stable with current medical therapy. (7) Constipation SNOMED Code(s): 53895575 ICD Code: K59.00 - CONSTIPATION, UNSPECIFIED Status: Chronic Priority: Medium Current Visit: Yes Problem Details: Stable with normal bowel movement earlier today. Qualifiers: Constipation type: chronic idiopathic constipation Qualified Code(s): K59.04 - Chronic idiopathic constipation (8) Hypertension SNOMED Code(s): 76955705 ICD Code: I10 - ESSENTIAL (PRIMARY) HYPERTENSION Status: Chronic Priority : Medium Current Visit: Yes Problem Details: Stable during her swing bed care. Qualifiers: Hypertension type: essential hypertension Qualified Code(s): I10 - Essential (primary) hypertension (9) Hypokalemia SNOMED Code(s): 98369943 ICD Code: E87.6 - HYPOKALEMIA Status: Acute Priority: Medium Current Visit: Yes Onset Date: 11/22/19 Problem Details: Added potassium supplementation at time of admission with repeat blood work on 11/25 showing resolution of her hypokalemia. (10) Hypocalcemia SNOMED Code(s): 7042554 ICD Code: E83.51 - HYPOCALCEMIA Status: Acute Priority: Medium Current Visit: Yes Problem Details: Increased calcium supplementation with extra strength Tums. (11) Hypoalbuminemia SNOMED Code(s): 753136458 ICD Code: E88.09 - OTH DISORDERS OF PLASMA-PROTEIN METABOLISM, NEC Status: Chronic Priority: Medium Current Visit: Yes Problem Details: Observe for now. Consider high-protein Glucerna supplements as snacks. (12) UTI (urinary tract infection) SNOMED Code(s): 14322860 ICD Code: N39.0 - URINARY TRACT INFECTION, SITE NOT SPECIFIED Status: Acute Current Visit: Yes Onset Date: 11/28/19 Problem Details: As above Qualifiers: Urinary tract infection type: acute cystitis Hematuria presence: without hematuria Qualified Code(s): N30.00 - Acute cystitis without hematuria - Patient Summary/Data Operative Procedure(s) Performed: None Complications: None Consults: Consultations 11/19/19 16:23 Consult to Case Management/Custom Frame Assembler [CONS] Routine OT Evaluation and Treatment [CONS] Routine PT Evaluation and Treatment [CONS] Routine Labs Pending at D/C: Urine culture and sensitivity Recommended Follow-up Testing/Procedures: None Planned Operative Procedure(s) after DC: Per accepting providers Hospital Course: Patient was admitted to swing bed with initiation of PT and OT as above. Otherwise multiple medication adjustments as above. No significant complications during her care in this facility. - Patient Instructions Diet: Heart Healthy Diet Activity: As Tolerated (And directed by your accepting providers) Driving: Do Not Drive Showering/Bathing: May Shower Wound/Incision Care: Keep Operative Site/Wound Site Clean and Dry Notify Provider of: Fever, Increased Pain, Swelling and Redness, Drainage, Nausea and/or Vomiting - Discharge Plan *PRESCRIPTION DRUG MONITORING PROGRAM REVIEWED*: Not Applicable *COPY OF PRESCRIPTION DRUG MONITORING REPORT IN PATIENT MATEO: Not Applicable Home Medications: Home Meds Albuterol Sulfate [Proair Hfa] 8.5 gm IH Q4HR PRN 11/03/19 [History] Calcium Carbonate/Vitamin D3 [Calcium 600-D3 20Mcg(800 Unit)] 1 each PO BEDTIME 11/03/19 [History] Cholecalciferol (Vitamin D3) [Vitamin D3] 25 mcg PO BEDTIME 11/03/19 [History] Cranberry Extract/Vit C [Azo Cranberry Softgel] 1 each PO DAILY 11/03/19 [ History] Cyanocobalamin (Vitamin B-12) [Vitamin B-12] 5,000 mcg PO DAILY 11/03/19 [ History] Ferrous Sulfate [Iron] 325 mg PO DAILY@1800 11/03/19 [History] Lenvatinib Mesylate [Lenvima] 4 mg PO DAILY@2100 11/03/19 [History] Levothyroxine [Synthroid] 88 mcg PO ACBREAKFAST 11/03/19 [History] Pantoprazole [ProTONIX] 40 mg PO DAILY 11/03/19 [History] Sodium Bicarbonate 650 mg PO BID 11/03/19 [History] Vitamin E 400 unit PO DAILY@1800 11/03/19 [History] atorvaSTATin [Lipitor] 40 mg PO BEDTIME 11/03/19 [History] Acetaminophen 650 mg PO Q4HR PRN 11/19/19 [History] Bisacodyl [Dulcolax] 10 mg RC DAILY PRN 11/19/19 [History] Everolimus [Afinitor] 7.5 mg PO DAILY@2100 11/19/19 [History] Lactulose 30 ml PO DAILY 11/19/19 [History] Sennosides/Docusate Sodium [Senna-Docusate Sodium Tablet] 1 each PO BID [History] amLODIPine Besylate [Norvasc] 10 mg PO DAILY 11/19/19 [History] oxyCODONE 5 mg PO Q4HR PRN 11/19/19 [History] polyethylene glycoL 3350 [MiraLAX] 17 gm PO DAILY 11/19/19 [History] Calcium Carbonate [Tums Extra Strength] 750 mg PO BEDTIME tab.chew 11/28/19 [Rx ] Calcium Carbonate/Vitamin D3 [Caltrate 600+D 1500 MG-400 Units] 1 tab PO BEDTIME tablet 11/28/19 [Rx] Potassium Chloride [Klor-Con M20] 20 meq PO DAILY tab.er 11/28/19 [Rx] Oxygen Therapy Mode: Room Air Patient Handouts: Laminectomy, Laminectomy, Care After Forms: Interfacility Transfer EMTALA - Discharge Summary/Plan Comment DC Time >30 min.: Yes (Coordination of care ) Discharge Summary/Plan Comment: As above. Extensive precautions were given to the patient, who is in agreement with the treatment plan. Ambulance transfer to [facility] in [place] as above - General Info Date of Service: 11/28/19 Admission Dx/Problem (Free Text: Admission Diagnosis/Problem 1. Postoperative weakness 2. Osteoarthritis with status post T3 laminectomy 3. Metastatic renal cancer Functional Status: Reports: Pain Controlled, Tolerating Diet, Ambulating, Urinating (Hernandez catheter). Denies: New Symptoms, Incentive Spirometry Numeric/FACES Score: 0 - Review of Systems General: Reports: Weakness (Stable chronic). Denies: Fatigue, Malaise, Chills, Night Sweats HEENT: Reports: Glasses. Denies: Dysphasia, Ear Pain, Headaches, Post Nasal Drip, Sinus Congestion, Rhinitis, Visual Changes Pulmonary: Reports: No Symptoms. Denies: Shortness of Breath, Pleuritic Chest Pain, Cough, Sputum, Hemoptysis, Wheezing Cardiovascular: Reports: PND, Edema (Dependent). Denies: Chest Pain, Palpitations, Dyspnea on Exertion, Orthopnea, Lightheadedness Gastrointestinal: Reports: No Symptoms. Denies: Abdominal Pain, Constipation, Decreased Appetite, Diarrhea, Difficulty Swallowing, Flatus, Hematochezia, Melena, Nausea, Vomiting Genitourinary: Reports: Retention (Hernandez catheter therapy). Denies: Dysuria, Frequency, Burning, Urgency, Incontinence, Hematuria, Flank Pain Musculoskeletal: Reports: No Symptoms. Denies: Neck Pain, Shoulder Pain, Arm Pain, Back Pain, Leg Pain Skin: Reports: Bruising Neurological: Reports: Pre-Existing Deficit, Difficulty Walking, Weakness Psychiatric: Reports: No Symptoms. Denies: Confusion, Depression, Anxiety, Agitation, Cravings, Hallucinations, Homicidal Ideation - Patient Data Vitals - Most Recent: Last Vital Signs Temp 36.6 C 11/28/19 07:27 Pulse 82 11/28/19 07:27 Resp 16 11/28/19 07:27 BP 136/82 11/28/19 07:46 Pulse Ox 97 11/28/19 07:27 Vital Signs - 24 hr 11/28/19 11/28/19 07:27 07:46 Temperature [ 36.6 C Oral] Pulse, 82 Peripheral [ Right Pulse Oximetry] Respiratory 16 Rate Blood Pressure 136/82 Blood Pressure 136/82 [Right Upper Arm] O2 Sat by Pulse 97 Oximetry Weight - Most Recent: 70.08 kg I&O - Last 24 hours: Intake & Output 11/27/19 11/28/19 11/28/19 22:59 06:59 14:59 Intake Total 100 360 Output Total 525 250 Balance -525 -150 360 Imaging Impressions - Last 24 hrs: None Lab Results - Last 24 hrs: Laboratory Results - last 24 hr 11/28/19 Range/Units 05:50 Specimen Type Urinfol Urine Color Yellow Urine Appearance Cloudy Urine pH 6.0 (5.0-9.0) Ur Specific [place] 1.020 (1.005-1.030) Urine Protein >=300 H (NEGATIVE) mg/dL Urine Glucose (UA) Negative (NEGATIVE) mg/dL Urine Ketones Negative (NEGATIVE) mg/dL Urine Occult Blood Large H (NEGATIVE) Urine Nitrite Positive H (NEGATIVE) Urine Bilirubin Negative (NEGATIVE) Urine Urobilinogen 0.2 (0.2-1.0) E.U./dL Ur Leukocyte Esterase Small H (NEGATIVE) Urine RBC 0-5 /HPF Urine WBC >100 H /HPF Ur Epithelial Cells Moderate H /LPF Urine Bacteria Many H (NONE TO FEW) /HPF [facility]UEL Results - Last 24 hrs: Urine culture and sensitivity pending Med Orders - Current: Current Medications Acetaminophen (Tylenol) 650 mg PO Q4HR PRN PRN Reason: mild pain or headache Albuterol (Ventolin Hfa) 0 gm INH Q4HR PRN PRN Reason: sob Amlodipine Besylate (Norvasc) 10 mg PO DAILY [facility] Last Admin: 11/28/19 07:46 Dose: 10 mg Atorvastatin Calcium (Lipitor) 40 mg PO BEDTIME [facility] Last Admin: 11/27/19 20:17 Dose: 40 mg Bisacodyl (Dulcolax) 10 mg RECTAL DAILY PRN PRN Reason: Constipation Calcium Carbonate (Caltrate 600+D 1500 Mg-400 Units) 1 tab PO BEDTIME [facility] Last Admin: 11/27/19 20:17 Dose: 1 tab Calcium Carbonate/Glycine (Tums Extra Strength) 750 mg PO BEDTIME [facility] Last Admin: 11/27/19 20:17 Dose: 750 mg Cholecalciferol (Vitamin D3) 25 mcg PO BEDTIME [facility] Last Admin: 11/27/19 20:17 Dose: 25 mcg Cranberry (Cranberry) 500 mg PO DAILY [facility] Last Admin: 11/28/19 07:46 Dose: 500 mg Cyanocobalamin (Vitamin B12) 5,000 mcg PO DAILY [facility] Last Admin: 11/28/19 07:45 Dose: 5,000 mcg Ferrous Sulfate (Ferrous Sulfate) 325 mg PO Q48H [facility] Last Admin: 11/27/19 17:56 Dose: 325 mg Levothyroxine Sodium (Synthroid) 88 mcg PO ACBREAKFAST [facility] Last Admin: 11/28/19 07:46 Dose: 88 mcg Loperamide HCl (Imodium Ad) 2 mg PO Q4H PRN PRN Reason: Diarrhea Last Admin: 11/27/19 20:17 Dose: 2 mg Everolimus [Afinitor (] 7.5 Mg Tablets) 7.5 mg PO DAILY@2100 [facility] Last Admin: 11/27/19 21:54 Dose: 7.5 mg Lenvatinib Mesylate [Lenvima] 4 Mg Capsules 4 mg PO DAILY@2100 [facility] Last Admin: 11/27/19 21:54 Dose: 4 mg Oxycodone HCl (Oxycodone) 5 mg PO Q4HR PRN PRN Reason: moderate pain Last Admin: 11/27/19 23:41 Dose: 5 mg Pantoprazole Sodium (Protonix) 40 mg PO DAILY [facility] Last Admin: 11/28/19 07:46 Dose: 40 mg Polyethylene Glycol (Miralax) 17 gm PO DAILY [facility] Last Admin: 11/28/19 07:47 Dose: Not Given Potassium Chloride (Klor-Con M20) 20 meq PO DAILY [facility] Last Admin: 11/28/19 07:46 Dose: 20 meq Sodium Bicarbonate (Sodium Bicarbonate) 650 mg PO BID [facility] Last Admin: 11/28/19 07:46 Dose: 650 mg Vitamin E (Vitamin E) 400 units PO DAILY@1800 [facility] Last Admin: 11/27/19 17:54 Dose: 400 units Discontinued Medications Cyanocobalamin (Vitamin B12) Confirm Administered Dose 1,000 mcg .ROUTE .STK- MED ONE Stop: 11/26/19 07:50 Last Admin: 11/26/19 07:56 Dose: Not Given Lactulose (Cephulac) 20 gm PO DAILY [facility] Last Admin: 11/21/19 08:00 Dose: Not Given Neomycin/Polymyxin/Bacitracin (Triple Antibiotic Oint) 1 each TOP ONETIME ONE Stop: 11/28/19 03:54 Last Admin: 11/28/19 05:02 Dose: Not Given Senna/Docusate Sodium (Senna Plus) 1 tab PO BID [facility] Last Admin: 11/21/19 08:00 Dose: Not Given - Exam Quality Assessment: Reports: Urine Catheter. Denies: Supplemental Oxygen, Central Line/PICC, DVT Prophylaxis, Skin Breakdown General: Reports: Alert, Oriented, Cooperative, No Acute Distress HEENT: Reports: Pupils Equal, Pupils Reactive, EOMI, Mucous Membr. Moist/[place], Other (Patient wearing glasses). Denies: Scleral Icterus Neck: Reports: Supple, Trachea Midline, No JVD, No Thyromegaly, Carotid Bruit ( Mild bilateral carotid bruits). Denies: Lymphadenopathy Lungs: Reports: Clear to Auscultation, Normal Respiratory Effort. Denies: Rub Cardiovascular: Reports: Regular Rate, Regular Rhythm, No Murmurs. Denies: Gallops, Rubs GI/Abdominal Exam: Normal Bowel Sounds, Soft, Non-Tender, No Organomegaly, No Distention, No Abnormal Bruit, No Mass, Pelvis Stable. No: Guarding (Female) Exam: Deferred Rectal (Female) Exam: Deferred Back Exam: Reports: Normal Inspection, Full Range of Motion. Denies: CVA Tenderness (L), CVA Tenderness (R), Muscle Spasm Extremities: Normal Range of Motion, Non-Tender, Normal Capillary Refill, Pedal Edema (Stable trace to +1 bilateral pedal/pretibial edema) Skin: Reports: Ecchymosis (Forearms bilaterally), Other (Surgical site in superior thoracic region intact, clean, dry with carolee in place. Dressing over mild superficial abrasion/skin tear over her left lateral fibular region) Wound/Incisions: Reports: Healing Well Neurological: Reports: No New Focal Deficit Psy/Mental Status: Reports: Alert, Normal Affect, Normal Mood. Denies: Agitated , Hallucinations, Withdrawal Symptoms
== END 2019-11-28 12:15 | DRG 560 ==
LOC: LL.MS 15:58 → UNDOADMIN 15:58 → LL.MS 16:23
PROVIDERS: ADMIT Family Medicine; ATTEND Family Medicine
DX: Z47.89 Encounter for other orthopedic aftercare (principal); T83.518A Infection and inflammatory reaction due to other urinary catheter, initial encounter; C64.9 Malignant neoplasm of unspecified kidney, except renal pelvis; R53.1 Weakness; M15.0 Primary generalized (osteo)arthritis; E78.5 Hyperlipidemia, unspecified; J43.1 Panlobular emphysema; D50.9 Iron deficiency anemia, unspecified; K21.9 Gastro-esophageal reflux disease without esophagitis; K59.04 Chronic idiopathic constipation; E87.6 Hypokalemia; E83.51 Hypocalcemia; E88.09 Other disorders of plasma-protein metabolism, not elsewhere classified; E78.00 Pure hypercholesterolemia, unspecified; J45.909 Unspecified asthma, uncomplicated; E03.9 Hypothyroidism, unspecified; Z98.890 Other specified postprocedural states; Z85.528 Personal history of other malignant neoplasm of kidney; Z79.890 Hormone replacement therapy; Z79.899 Other long term (current) drug therapy
CPT/HCPCS: 36415; 51702; 51798; 80053; 81001; 83735; 84550; 85025; 85610; 85730; 87086; 87088; 97110-GO; 97110-GP; 97116-GP; 97161-GP; 97165-GO; 97530-GO; 97530-GP; A9270-GY